=== PATIENT | female | born 1980 | race Caucasian/White ===

== ENCOUNTER 2017-03-05 12:45 | Emergency (ER) | payer BC ==
[2017-03-05 13:30] VITALS: BP 116/86
--- NOTE | 2017-03-05 14:54 | UC ---
Knee Pain HPI - HPI Summary HPI Summary: TRIPPED AND TWISTED LEFT KNEE 8 DAYS AGO (02/25/17). HAD IMMEDIATE PAIN AND IT HAS GOTTEN WORSE OVER THE PAST WEEK. MINIMAL SWELLING. WALKING WITH A LIMP. IBUPROFEN HELPS. - History of Current Complaint Chief Complaint: UCLowerExtremity Stated Complaint: KNEE INJURY Time Seen by Provider: 03/05/17 14:41 Hx Obtained From: Patient Hx Last Menstrual Period: 02/25/17 Onset/Duration: Gradual Onset, Lasting Days, Still Present Severity Initially: Moderate Severity Currently: Moderate Pain Intensity: 5 Pain Scale Used: 0-10 Numeric Character: Aching Alleviating Factor(s): Rest, Position, OTC Meds - IBUPROFEN Associated Signs And Symptoms: Positive: Swelling. Negative: Redness, Bruising , Fever, Numbness, Tingling Able to Bear Weight: Yes - Allergies/Home Medications Allergies/Adverse Reactions: Allergies Allergy/AdvReac Type Severity Reaction Status Date / Time Morphine AdvReac Severe Headache Verified 03/05/17 13:30 Vancomycin AdvReac Severe See Comment Verified 03/05/17 13:30 Baclofen AdvReac Intermediate Headache Verified 03/05/17 13:30 Home Medications: Home Medications Cholecalciferol TAB* [Vitamin D TAB*] 1,000 unit PO WEEKLY 03/05/17 [History Confirmed 03/05/17] Ibuprofen TAB* [Advil TAB*] 800 mg PO TID PRN 03/05/17 [History Confirmed ] QUEtiapine TAB* [Seroquel TAB*] 50 mg PO BEDTIME 03/05/17 [History Confirmed ] PMH/Surg Hx/FS Hx/Imm Hx - Additional Past Medical History Additional PMH: PCOS, FIBROMYALGIA Endocrine History Of: Denies: Diabetes Cardiovascular History Of: Denies: Hypertension, Pacemaker/ICD, Congestive Heart Failure Respiratory History Of: Denies: Asthma GI/ History Of: Reports: Ulcer - /p yamel en y, Gastrointestinal Bleed Denies: Renal Disease Neurological History Of: Reports: Migraine Psychological History Of: Reports: Anxiety, Depression - Surgical History Surgical History: Yes Surgery Procedure, Year, and Place: 3 HIP SURGERIES A CHILD. LUMBAR 4-5 DISCECTOMY 2009. LAP GASTRIC BYPASS [place] [facility] [place] 2010. LEFT TOTAL HIP REPLACEMENT AND SCREW REMOVAL 2011. LUMBAR DORSAL COLUMN STIMULATOR TRAIL LEAD PLACEMENT 05/2013. DORSAL COLUMN STIMULATOR PLACEMENT 08/2013. D AND C 2015 [place] - Family History Known Family History: Positive: None - Social History Alcohol Use: Occasionally Alcohol Amount: 3 X YEAR Substance Use Type: Marijuana Substance Use Comment - Amount & Last Used: occassionally for pain Smoking Status (MU): Light Every Day Tobacco Smoker Type: Cigarettes Amount Used/How Often: 5 CIG DAY Have You Smoked in the Last Year: Yes Household Exposure Type: Cigarettes - Immunization History Most Recent Influenza Vaccination: 2011 Most Recent Tetanus Shot: unknown Review of Systems Constitutional: Negative Skin: Negative Respiratory: Negative Cardiovascular: Negative Gastrointestinal: Negative Musculoskeletal: Arthralgia, Decreased ROM All Other Systems Reviewed And Are Negative: Yes Physical Exam Triage Information Reviewed: Yes Appearance: Well-Appearing, No Pain Distress, Well-Nourished Vital Signs: Initial Vital Signs Temp 98.7 F 03/05/17 13:26 Pulse 74 03/05/17 13:26 Resp 16 03/05/17 13:26 BP 116/86 03/05/17 13:26 Pulse Ox 98 03/05/17 13:26 Vital Signs Reviewed: Yes Eyes: Positive: Conjunctiva Clear ENT: Positive: Hearing grossly normal Neck: Positive: Supple Respiratory: Positive: No respiratory distress, No accessory muscle use Cardiovascular: Positive: Pulses Normal Abdomen Description: Positive: Soft Musculoskeletal: Positive: ROM Limited @ - LEFT KNEE, Edema @ - MILDLY EDEMATOUS LEFT KNEE, Other: - LEFT KNEE: LATERAL JOINT LINE TENDERNESS. NO TENDERNESS OVER ANY BONY PROMINENCES. MCL AND LCL INTACT TO STRESS TESTING. NEG LACHMANS. NEG DRAWERS SIGNS. POS MCMURRAYS LATERAL. NO TENDERNESS OVER PATELLAR LIGAMENT OR QUADRICEPS TENDON. MILDLY DECREASED ROM (FLEXION). Neurological: Positive: Alert Psychological: Positive: Age Appropriate Behavior Skin: Negative: rashes Diagnostics - Radiology LEFT KNEE XRAY Xray Interpretation: No Acute Changes Radiology Interpretation Completed By: Radiologist Knee Pain Course/Dx - Differential Dx/Diagnosis Provider Diagnoses: LEFT KNEE PAIN - SUSPECT INTERNAL INJURY Discharge - Discharge Plan Condition: Stable Disposition: HOME Patient Education Materials: Knee Pain (ED) Referrals: Carol Ingram RN [Primary Care Provider] - If Needed Jaylon Parham MD [Medical Doctor] - 1 Week Additional Instructions: WEAR THE KNEE IMMOBILIZER FOR THE NEXT 2-3 DAYS. THEN BE SURE TO GO THROUGH SLOW RANGE OF MOTION AND STRETCHING EXERCISES YOU ARE ABLE TO PREVENT STIFFENING UP AND MAKING THE DISCOMFORT WORSE. FOLLOW-UP WITH ORTHO. SUSPECTED INTERNAL KNEE INJURY: The examiner of your injured knee suspects an internal injury to the cartilage or internal ligaments. This must be further investigated by an pediatric sports medicine specialist. The knee should be protected, ice packed, and elevated while awaiting your follow-up exam by the orthopedist. If there is severe swelling, severe pain, or any new symptoms while awaiting your exam, you should call the orthopedist. (If he/she is unavailable, call us or return for re-examination.)
--- NOTE | 2017-03-05 15:22 | RAD ---
HISTORY: Lateral left knee pain, subacute trauma COMPARISONS: None VIEWS: 4, Frontal, lateral, axial, and oblique views of the left knee FINDINGS: BONE DENSITY: Normal. BONES: There is no displaced fracture. JOINTS: There is no arthropathy. There is no suprapatellar joint effusion or lipohemarthrosis. ALIGNMENT: There is no dislocation. SOFT TISSUES: Unremarkable. OTHER FINDINGS: None. IMPRESSION: NO ACUTE OSSEOUS INJURY. IF SYMPTOMS PERSIST, RECOMMEND REPEAT IMAGING.
== END 2017-03-05 15:44 | disposition home or self-care (01) ==
LOC: UCEAST 12:45
DX: M25.562 Pain in left knee (principal); G43.909 Migraine, unspecified, not intractable, without status migrainosus; F41.9 Anxiety disorder, unspecified; Z88.1 Allergy status to other antibiotic agents; Z88.5 Allergy status to narcotic agent; F32.9 Major depressive disorder, single episode, unspecified; F17.210 Nicotine dependence, cigarettes, uncomplicated
CPT/HCPCS: 99213; G0463

== ENCOUNTER 2018-04-05 13:01 | Emergency (ER) | payer BC ==
[2018-04-05 13:30] VITALS: BP 132/87
--- NOTE | 2018-04-05 14:30 | UC ---
Upper Extremity HPI - HPI Summary HPI Summary: Patient is a 37-year-old female presenting 6 days after falling to the right arm presenting with continuing right arm pain. Endorses ecchymosis with a small deformity. Radiation of pain to the wrist and hand as well as up to the elbow. Denies any pain to the elbow and denies any range of motion issues to the elbow or wrist. Denies any numbness or tingling. She denies any other injuries otherwise. - History of Current Complaint Chief Complaint: UCUpperExtremity Stated Complaint: LOWER ARM INJURY Time Seen by Provider: 04/05/18 14:04 Hx Obtained From: Patient Hx Last Menstrual Period: 02/25/17 ?: No Onset/Duration: Sudden Onset Severity Initially: Moderate Severity Currently: Moderate Pain Intensity: 4 Pain Scale Used: 0-10 Numeric Location Of Pain: Is Discrete @ - right forearm pain and ecchymosis Aggravating Factor(s): Lifting, Flexion, Extension Associated Signs And Symptoms: Positive: Swelling, Bruising, Numbness/Tingling Related History: Dominant Hand Right - Risk Factors Non-Orthopedic Risk Factor: Negative DVT Risk Factors: Negative Septic Arthritis Risk Factor: Negative Compartment Syndrome Risk Factors: Pain - Allergies/Home Medications Allergies/Adverse Reactions: Allergies Allergy/AdvReac Type Severity Reaction Status Date / Time baclofen Allergy Headache Verified 04/05/18 13:31 morphine Allergy Headache Verified 04/05/18 13:31 vancomycin Allergy See Comment Verified 04/05/18 13:31 MS Morphine [Morphine] AdvReac Severe Headache Verified 03/20/17 09:55 MS Vancomycin [Vancomycin] AdvReac Severe See Comment Verified 03/20/17 09:55 MS Baclofen [Baclofen] AdvReac Intermediate Headache Verified 03/20/17 09:55 Home Medications: Home Medications Acetaminophen TAB* [Tylenol TAB*] 1,000 mg PO Q4H PRN 04/05/18 [History Confirmed 04/05/18] Multivitamins/Minerals TAB* [Theragran/minerals TAB*] 1 tab PO DAILY 04/05/18 [ History Confirmed 04/05/18] Pregabalin CAP(*) [Lyrica CAP(*)] 150 mg PO BID 04/05/18 [History Confirmed ] PMH/Surg Hx/FS Hx/Imm Hx Previously Healthy: Yes - Surgical History Surgical History: Yes Surgery Procedure, Year, and Place: 3 HIP SURGERIES A CHILD. LUMBAR 4-5 DISCECTOMY 2009. LAP GASTRIC BYPASS [place] [facility] 2010. LEFT TOTAL HIP REPLACEMENT AND SCREW REMOVAL 2011. hysterectomy. LUMBAR DORSAL COLUMN STIMULATOR TRAIL LEAD PLACEMENT 05/2013. DORSAL COLUMN STIMULATOR PLACEMENT 2012. D AND C 05/2016 [place]. STIMULATOR REMOVED-WILL HAVE DX TO CLEAR - Family History Known Family History: Positive: None - Social History Occupation: Employed Full-time Lives: With Family Alcohol Use: Occasionally Alcohol Amount: 3 X YEAR Substance Use Type: Marijuana Substance Use Comment - Amount & Last Used: occassionally for pain Smoking Status (MU): Light Every Day Tobacco Smoker Type: Cigarettes Amount Used/How Often: 15 sig/day Have You Smoked in the Last Year: Yes Household Exposure Type: Cigarettes - Immunization History Most Recent Influenza Vaccination: 2011 Most Recent Tetanus Shot: unknown Review of Systems Constitutional: Negative Skin: Bruising Respiratory: Negative Cardiovascular: Negative Motor: Negative Neurovascular: Negative Musculoskeletal: Arthralgia Neurological: Negative Psychological: Negative Is Patient Immunocompromised?: No All Other Systems Reviewed And Are Negative: Yes Physical Exam Triage Information Reviewed: Yes Appearance: Well-Appearing, No Pain Distress, Well-Nourished Vital Signs: Initial Vital Signs Temp 98.6 F 04/05/18 13:24 Pulse 78 04/05/18 13:24 Resp 16 04/05/18 13:24 BP 132/87 04/05/18 13:24 Pulse Ox 100 04/05/18 13:24 Vital Signs Reviewed: Yes Eye Exam: Normal Neck exam: Normal Neck: Positive: Supple, No Lymphadenopathy Respiratory Exam: Normal Respiratory: Positive: Chest non-tender, Lungs clear Cardiovascular Exam: Normal Cardiovascular: Positive: RRR Musculoskeletal Exam: Other - bruising and swelling with small deformity to the right forearm Neurological Exam: Normal Neurological: Positive: Alert Psychological Exam: Normal Psychological: Positive: Normal Response To Family Skin Exam: Normal Upper Extremity Course/Dx - Course Course Of Treatment: On physical examination, patient is evaluated for right forearm pain, ecchymosis, swelling and small deformity. X-ray obtained which shows no fracture or acute findings. The area of deformity seems to be a tension hematoma. I have encouraged heat to the area and I have Jose wrapped the area for comfort. - Differential Dx/Diagnosis Provider Diagnoses: Hematoma Discharge - Sign-Out/Discharge Documenting (check all that apply): Discharge/Admit/Transfer - Discharge Plan Condition: Stable Disposition: HOME Patient Education Materials: Hematoma (ED) Referrals: Carol Ingram RN [Primary Care Provider] - Additional Instructions: Tylenol 650mg three times daily Moist heat to the area Keep the area compressed - Billing Disposition and Condition Condition: STABLE Disposition: Home
--- NOTE | 2018-04-05 14:50 | RAD ---
INDICATION: Right forearm injury COMPARISON: None TECHNIQUE: AP and lateral views were obtained. FINDINGS: There is no acute fracture. There is soft tissue swelling of the dorsal forearm and wrist. IMPRESSION: NO ACUTE FRACTURE.
== END 2018-04-05 15:05 | disposition home or self-care (01) ==
LOC: UCEAST 13:01
DX: S50.11XA Contusion of right forearm, initial encounter (principal); W19.XXXA Unspecified fall, initial encounter; Y93.9 Activity, unspecified; Y99.9 Unspecified external cause status; F17.210 Nicotine dependence, cigarettes, uncomplicated
CPT/HCPCS: 99211; G0463

== ENCOUNTER 2018-05-08 11:19 | Emergency (ER) | payer BC ==
[2018-05-08 11:26] VITALS: BP 123/77
--- NOTE | 2018-05-08 11:53 | UC ---
Hand/Wrist HPI - HPI Summary HPI Summary: 37 y/o female present to the urgent care c/o fell last week onto her right wrist on the lateral side, isn't able to get relief from the pain. - History Of Current Complaint Chief Complaint: UCUpperExtremity Stated Complaint: R ARM INJURY Time Seen by Provider: 05/08/18 11:46 Hx Obtained From: Patient Hx Last Menstrual Period: 02/25/17 ?: No - Hx of Hystertomy Onset/Duration: Sudden Onset, Lasting Weeks - 1.5 week Severity Initially: Moderate Severity Currently: Moderate Pain Intensity: 6 Pain Scale Used: 0-10 Numeric Character Of Pain: Sharp Aggravating Factor(s): Movement, Lifting, Pulling Alleviating Factor(s): Rest, Ice, OTC Meds Associated Signs And Symptoms: Positive: Swelling. Negative: Redness, Bruising , Fever, Weakness, Numbness/Tingling Related History: Dominant Hand Right - Allergies/Home Medications Allergies/Adverse Reactions: Allergies Allergy/AdvReac Type Severity Reaction Status Date / Time baclofen Allergy Headache Verified 05/08/18 11:26 morphine Allergy Headache Verified 05/08/18 11:26 vancomycin Allergy See Comment Verified 05/08/18 11:26 Home Medications: Home Medications Iron 1 tab PO DAILY 05/08/18 [History Confirmed 05/08/18] PMH/Surg Hx/FS Hx/Imm Hx Previously Healthy: Yes Other Endocrine History: fibromyalgia, Trigeminal neuralgia Other Neurological History: Degenerative disc disease, herniated Disc Psychological History: Anxiety, Depression - Surgical History Surgical History: Yes Surgery Procedure, Year, and Place: 3 HIP SURGERIES A CHILD. LUMBAR 4-5 DISCECTOMY 2009. LAP GASTRIC BYPASS [place] [facility] 2010. LEFT TOTAL HIP REPLACEMENT AND SCREW REMOVAL 2011. hysterectomy. LUMBAR DORSAL COLUMN STIMULATOR TRAIL LEAD PLACEMENT 05/2013. DORSAL COLUMN STIMULATOR PLACEMENT 2012. D AND C 05/2016 [place]. STIMULATOR REMOVED-WILL HAVE DX TO CLEAR - Family History Known Family History: Positive: Hypertension, Diabetes - Social History Occupation: Disabled Lives: With Family Alcohol Use: Daily Alcohol Amount: 3 X YEAR Substance Use Type: Marijuana Substance Use Comment - Amount & Last Used: occassionally for pain Smoking Status (MU): Light Every Day Tobacco Smoker Type: Cigarettes Amount Used/How Often: 15 sig/day Have You Smoked in the Last Year: Yes Household Exposure Type: Cigarettes - Immunization History Most Recent Influenza Vaccination: 2011 Most Recent Tetanus Shot: unknown Review of Systems Constitutional: Negative Skin: Other - RT wrsit swelling s/p fall Eyes: Negative ENT: Negative Respiratory: Negative Cardiovascular: Negative Gastrointestinal: Negative Genitourinary: Negative Motor: Negative Neurovascular: Negative Musculoskeletal: Decreased ROM - Rt wrist, Other: - Rt wrist pain s/p fall Neurological: Negative Psychological: Negative Is Patient Immunocompromised?: No All Other Systems Reviewed And Are Negative: Yes Physical Exam - Summary Physical Exam Summary: Vital Signs Reviewed: Yes General: Well-Appearing, No Pain Distress, Well-Nourished - female w/o any apparent distress Eyes: Positive: Conjunctiva Clear - PERRLA, EOMI ENT: Positive: Normal ENT inspection, Hearing grossly normal, Pharynx normal, TMs normal, Uvula midline Neck: Positive: Supple, Nontender, No Lymphadenopathy Respiratory: Positive: Chest non-tender, Lungs clear, Normal breath sounds, No respiratory distress Cardiovascular: Positive: RRR, No Murmur, Pulses Normal, Brisk Capillary Refill Abdomen Description: Positive: Nontender, No Organomegaly, Soft. Negative: CVA Tenderness (R), CVA Tenderness (L) Bowel Sounds: Positive: Present Musculoskeletal: Positive: Strength Intact, Other: Neurological Exam: Normal Musculoskeletal: Positive: Wrist: the R wrist is without obvious asymmetry or deformity when compared to the L wrist. No surface trauma, open wounds, swelling , or obvious deformity. No overlying erythema or warmth. No bony crepitus. Point tenderness over the thenar eminence and ventral side of wrist. No scaphoid fullness or tenderness to direct palpation or axial load. Decreased ROM due to pain. Motor/sensory function of ulnar, radial, median nerves intact. Ulnar and radial pulses intact. Psychological Exam: Normal Skin Exam: Normal Triage Information Reviewed: Yes Vital Signs: Initial Vital Signs Temp 99.3 F 05/08/18 11:22 Pulse 82 05/08/18 11:22 Resp 18 05/08/18 11:22 BP 123/77 05/08/18 11:22 Pulse Ox 99 05/08/18 11:22 Hand/Wrist Course/Dx - Differential Dx/Diagnosis Differential Diagnosis/HQI/PQRI: Contusion, Fracture, Sprain, Strain, Tendonitis Provider Diagnoses: 1- RT wrist pain and swelling s/p fall. 2- RT wrist sprain Discharge - Discharge Plan Condition: Stable Disposition: HOME Prescriptions: HYDROcodone/ACETAMIN 5-325 MG* [[place] 5-325 TAB*] 1 tab PO Q6H PRN #12 tab MDD 1g/4hrs-4g/day PRN Reason: Pain Patient Education Materials: Wrist Sprain (ED) Referrals: Hernesto MEADEP,Carol [Primary Care Provider] - 1 Week Garth Ramirez MD [Medical Doctor] - 1 Week Additional Instructions: 1-Please take medications as directed to alleviate pain and swelling. 2-Please apply ice, keep your wrist immobilized with the splint.Avoid heavy lifting. 3- Please f/u with Orthopedic Dr Ramirez or your PCP in 1 week is not improvement of symptoms for further evaluation and treatment. - Billing Disposition and Condition Condition: STABLE Disposition: Home
[2018-05-08] MEDS ORDERED: Ketorolac INJ* 30 MG/ML 1 ML VIAL IM ONE (12:04)
--- NOTE | 2018-05-08 12:44 | RAD ---
INDICATION: Right wrist injury. TECHNIQUE: 3 views of the right wrist were obtained. FINDINGS: There is diffuse soft tissue swelling. The bones are in normal alignment. No fracture is seen. Joint spaces appear maintained. IMPRESSION: SOFT TISSUE SWELLING, NO FRACTURE IS SEEN. IF THE PATIENT'S SYMPTOMS PERSIST RECOMMEND FOLLOW-UP IMAGING.
== END 2018-05-08 13:03 | disposition home or self-care (01) ==
LOC: UCEAST 11:19
DX: S63.501A Unspecified sprain of right wrist, initial encounter (principal); F17.210 Nicotine dependence, cigarettes, uncomplicated; Z88.1 Allergy status to other antibiotic agents; Z88.5 Allergy status to narcotic agent; Z88.8 Allergy status to other drugs, medicaments and biological substances; M79.7 Fibromyalgia; W19.XXXA Unspecified fall, initial encounter; Y92.9 Unspecified place or not applicable
CPT/HCPCS: 99213; G0463; J1885

== ENCOUNTER 2019-02-27 13:14 | Emergency (ER) | payer MEDICAID, MEDICARE ==
[2019-02-27 13:58] LABS: ABS Basophils 0.1 10^3/ul (0-0.2); ABS Eosinophils 0.2 10^3/ul (0-0.6); ABS Lymphocytes 1.8 10^3/ul (1.0-4.8); ABS Neutrophils 9.4 10^3/ul (1.5-7.7); Eosinophil % 1.8 %; Hematocrit 41 % (35-47); Hemoglobin 13.8 g/dL (12.0-16.0); Lymphocyte % 14.4 %; Mean Corpuscular HGB Conc 34 g/dL (31-36); Mean Corpuscular Hemoglobin 32 pg (27-31); Mean Corpuscular Volume 95 fL (80-97); Mean Platelet Volume 8.5 fL (7.4-10.4); Nucleated Red Blood Cells % 0.1; Platelet Count 265 10^3/uL (150-450); Red Cell Distribution Width 13 % (10.5-15); White Blood Count 12.5 10^3/uL (3.5-10.8)
[2019-02-27 14:05] LABS: INR 0.99 (0.82-1.09)
[2019-02-27 14:16] LABS: ALT 20 U/L (7-52); AST 18 U/L (13-39); Albumin 4.6 g/dL (3.2-5.2); Albumin/Globulin Ratio 1.6 (1-3); Alkaline Phosphatase 66 U/L (34-104); Anion Gap 6 mmol/L (2-11); BUN/Creatinine Ratio 12.5 (8-20); Blood Urea Nitrogen 8 mg/dL (6-24); CO2 Carbon Dioxide 26 mmol/L (22-32); Calcium 9.4 mg/dL (8.6-10.3); Chloride 106 mmol/L (101-111); Creatine Kinase 37 U/L (10-223); EGFR African American 126.3 (>60); EGFR Non-African American 104.4 (>60); Globulin 2.8 g/dL (2-4); Glucose 96 mg/dL (70-100); Potassium 3.7 mmol/L (3.5-5.0); Sodium 138 mmol/L (135-145); Total Protein 7.4 g/dL (6.4-8.9)
--- NOTE | 2019-02-27 14:22 | ED ---
Seizure - HPI Summary HPI Summary: 38-year-old female presents with fall today. States that she was sitting in a stool and she passed out and had vibrations per her friend. She states she's been having increased twitching due to her lithium. States that the lithium causes her twitches. She's never had this before. No family history of seizures. She denies any pain. No chest pain or shortness of breath. She denies any dizziness. No headache. She does not believe she hit her head. admits to nausea but no vomiting. No recent illness. No fevers. Her tremor has been increasing in the past couple weeks. She states feels off. She denies any fevers. - History Of Current Complaint Chief Complaint: EDSeizure Time Seen by Provider: 02/27/19 13:28 - Allergies/Home Medications Allergies/Adverse Reactions: Allergies Allergy/AdvReac Type Severity Reaction Status Date / Time baclofen Allergy Headache Verified 05/08/18 11:26 morphine Allergy Headache Verified 05/08/18 11:26 vancomycin Allergy See Comment Verified 05/08/18 11:26 Home Medications: Home Medications Dushore Carbonate [Dushore Carbonate 300 mg cap] 300 mg PO TID 02/27/19 [ History Confirmed 02/27/19] PMH/Surg Hx/FS Hx/Imm Hx Endocrine/Hematology History: Reports: Other Endocrine/Hematological Disorders - obesity Denies: Hx Diabetes, Hx Systemic Lupus Erythematosus, Hx Sickle Cell Disease Cardiovascular History: Denies: Hx Congestive Heart Failure, Hx Hypertension, Hx Pacemaker/ICD Respiratory History: Reports: Hx Sleep Apnea - USES CPAP Denies: Hx Asthma, Other Respiratory Problems/Disorders GI History: Reports: Hx Gastroesophageal Reflux Disease, Hx Gastrointestinal Bleed, Hx Ulcer - /p yamel en y, Other GI Disorders - GASTRIC BYPASS History: Denies: Hx Dialysis, Hx Renal Disease, Other Problems/Disorders Musculoskeletal History: Reports: Hx Arthritis - GENERALIZED OSTEO, Hx Back Problems, Hx Fibromyalgia, Hx Orthopedic Injury, Other Musculoskeletal History - back surgeries and hip replacement Denies: Hx Rheumatoid Arthritis Sensory History: Reports: Hx Contacts or Glasses Denies: Hx Hearing Aid Opthamlomology History: Reports: Hx Contacts or Glasses Neurological History: Reports: Hx Migraine, Hx Spinal Cord Injury - multiple surgeries Comment Only: Other Neuro Impairments/Disorders - migrane Psychiatric History: Reports: Hx Anxiety, Hx Depression, Hx Panic Disorder - CHRONIC ANXIETY - Cancer History Cancer Type, Location and Year: uterine polyp 2010 Hx Chemotherapy: No Hx Radiation Therapy: No Hx Palliative Cancer Treatment: No - Surgical History Surgery Procedure, Year, and Place: 3 HIP SURGERIES A CHILD. LUMBAR 4-5 DISCECTOMY 2009. LAP GASTRIC BYPASS YAMEL EN Y 2010. LEFT TOTAL HIP REPLACEMENT AND SCREW REMOVAL 2011. hysterectomy. LUMBAR DORSAL COLUMN STIMULATOR TRAIL LEAD PLACEMENT 05/2013. DORSAL COLUMN STIMULATOR PLACEMENT 2012. D AND C 05/2016 [facility]. STIMULATOR REMOVED-WILL HAVE DX TO CLEAR Hx Anesthesia Reactions: No Infectious Disease History: No Infectious Disease History: Denies: Hx Clostridium Difficile, Hx Hepatitis, Hx Human Immunodeficiency Virus (HIV), Hx of Known/Suspected MRSA, Traveled Outside the [place] in Last 30 Days - Family History Known Family History: Positive: None, Hypertension, Diabetes - Social History Alcohol Use: Daily Alcohol Amount: 3 X YEAR Substance Use Type: Reports: Marijuana Substance Use Comment - Amount & Last Used: occassionally for pain Smoking Status (MU): Light Every Day Tobacco Smoker Type: Cigarettes Amount Used/How Often: 15 sig/day Have You Smoked in the Last Year: Yes Review of Systems Negative: Fever Negative: Chest Pain Negative: Shortness Of Breath Neurological: Other - vibration All Other Systems Reviewed And Are Negative: Yes Physical Exam Triage Information Reviewed: Yes Vital Signs On Initial Exam: Initial Vitals Temp Pulse Resp BP Pulse Ox 97.8 F 85 16 176/107 100 02/27/19 13:18 02/27/19 13:18 02/27/19 13:18 02/27/19 13:18 02/27/19 13:18 Vital Signs Reviewed: Yes Appearance: Positive: Well-Appearing Skin: Positive: Warm, Dry Head/Face: Positive: Normal Head/Face Inspection Eyes: Positive: Normal, Conjunctiva Clear ENT: Positive: Pharynx normal Respiratory/Lung Sounds: Positive: Clear to Auscultation, Breath Sounds Present Cardiovascular: Positive: Normal, RRR Abdomen Description: Positive: Nontender, Soft Bowel Sounds: Positive: Present Musculoskeletal: Positive: Normal Neurological: Positive: Sensory/Motor Intact, Alert, Oriented to Person Place, Time, CN Intact II-III Psychiatric: Positive: Normal - [place] Coma Scale Best Eye Response: 4 - Spontaneous Best Motor Response: 6 - Obeys Commands Best Verbal Response: 5 - Oriented Coma Scale Total: 15 Diagnostics - Vital Signs Vital Signs Temp Pulse Resp BP Pulse Ox 02/27/19 13:18 97.8 F 85 16 176/107 100 - Laboratory Lab Results: Lab Results 02/27/19 02/27/19 02/27/19 Range/Units 13:46 13:46 13:46 WBC 12.5 H (3.5-10.8) 10^3/uL RBC 4.30 (3.70-4.87) 10^6 /uL Hgb 13.8 (12.0-16.0) g/dL Hct 41 (35-47) % MCV 95 (80-97) fL MCH 32 H (27-31) pg MCHC 34 (31-36) g/dL RDW 13 (10.5-15) % Plt Count 265 (150-450) 10^3/uL MPV 8.5 (7.4-10.4) fL Neut % (Auto) 75.2 % Lymph % (Auto) 14.4 % Petroleum % (Auto) 7.8 % Eos % (Auto) 1.8 % Baso % (Auto) 0.8 % Absolute Neuts (auto) 9.4 H (1.5-7.7) 10^3/ul Absolute Lymphs (auto) 1.8 (1.0-4.8) 10^3/ul Absolute Monos (auto) 1.0 H (0-0.8) 10^3/ul Absolute Eos (auto) 0.2 (0-0.6) 10^3/ul Absolute Basos (auto) 0.1 (0-0.2) 10^3/ul Absolute Nucleated RBC 0.0 10^3/ul Nucleated RBC % 0.1 INR (Anticoag Therapy) 0.99 (0.82-1.09) Sodium 138 (135-145) mmol/L Potassium 3.7 (3.5-5.0) mmol/L Chloride 106 (101-111) mmol/L Carbon Dioxide 26 (22-32) mmol/L Anion Gap 6 (2-11) mmol/L BUN 8 (6-24) mg/dL Creatinine 0.64 (0.51-0.95) mg/dL Est GFR ( Amer) 126.3 (>60) Est GFR (Non-Af Amer) 104.4 (>60) BUN/Creatinine Ratio 12.5 (8-20) Glucose 96 (70-100) mg/dL Lactic Acid (0.5-2.0) mmol/L Calcium 9.4 (8.6-10.3) mg/dL Magnesium 2.0 (1.9-2.7) mg/dL Total Bilirubin 0.40 (0.2-1.0) mg/dL AST 18 (13-39) U/L ALT 20 (7-52) U/L Alkaline Phosphatase 66 (34-104) U/L Total Creatine Kinase 37 (10-223) U/L Total Protein 7.4 (6.4-8.9) g/dL Albumin 4.6 (3.2-5.2) g/dL Globulin 2.8 (2-4) g/dL Albumin/Globulin Ratio 1.6 (1-3) D[place]ore Pending Serum Alcohol Pending 02/27/19 Range/Units 13:46 WBC (3.5-10.8) 10^3/uL RBC (3.70-4.87) 10^6 /uL Hgb (12.0-16.0) g/dL Hct (35-47) % MCV (80-97) fL MCH (27-31) pg MCHC (31-36) g/dL RDW (10.5-15) % Plt Count (150-450) 10^3/uL MPV (7.4-10.4) fL Neut % (Auto) % Lymph % (Auto) % Petroleum % (Auto) % Eos % (Auto) % Baso % (Auto) % Absolute Neuts (auto) (1.5-7.7) 10^3/ul Absolute Lymphs (auto) (1.0-4.8) 10^3/ul Absolute Monos (auto) (0-0.8) 10^3/ul Absolute Eos (auto) (0-0.6) 10^3/ul Absolute Basos (auto) (0-0.2) 10^3/ul Absolute Nucleated RBC 10^3/ul Nucleated RBC % INR (Anticoag Therapy) (0.82-1.09) Sodium (135-145) mmol/L Potassium (3.5-5.0) mmol/L Chloride (101-111) mmol/L Carbon Dioxide (22-32) mmol/L Anion Gap (2-11) mmol/L BUN (6-24) mg/dL Creatinine (0.51-0.95) mg/dL Est GFR ( Amer) (>60) Est GFR (Non-Af Amer) (>60) BUN/Creatinine Ratio (8-20) Glucose (70-100) mg/dL Lactic Acid 1.2 (0.5-2.0) mmol/L Calcium (8.6-10.3) mg/dL Magnesium (1.9-2.7) mg/dL Total Bilirubin (0.2-1.0) mg/dL AST (13-39) U/L ALT (7-52) U/L Alkaline Phosphatase (34-104) U/L Total Creatine Kinase (10-223) U/L Total Protein (6.4-8.9) g/dL Albumin (3.2-5.2) g/dL Globulin (2-4) g/dL Albumin/Globulin Ratio (1-3) D[place]ore Serum Alcohol Result Diagrams: 02/27/19 13:46 02/27/19 13:46 Lab Statement: Any lab studies that have been ordered have been reviewed, and results considered in the medical decision making process. - CT brain CT Interpretation Completed By: ED Physician Summary of CT Findings: no acute findings - EKG No standard instances Cardiac Rate: NL EKG Rhythm: Sinus Rhythm Summary of EKG Findings: sinus rhythm Re-Evaluation - Re-Evaluation First Eval Comment: feels nausous Second Eval Re-Evaluation Time: 16:06 Comment: feeling better, no seizure activity in ED Course/Dx - Course Course Of Treatment: 38-year-old female presents with fall today. States that she was sitting in a stool and she passed out and had vibrations per her friend. She states she's been having increased twitching due to her lithium. States that the lithium causes her twitches. She's never had this before. No family history of seizures. She denies any pain. No chest pain or shortness of breath. She denies any dizziness. No headache. She does not believe she hit her head. admits to nausea but no vomiting. No recent illness. No fevers. Her tremor has been increasing in the past couple weeks. She states feels off. She denies any fevers. On exam has a normal neuro exam. Has a resting tremor present. EKG shows sinus rhythm. labwork without significant abnormality. CT brain normal. Gave Zofran and feeling better. Discharged to follow-up with neurology outpatient. likely was a syncopal event. But can follow-up with neurology about tremor. Patient understands agrees with plan. - Diagnoses Differential Diagnosis/HQI/PQRI: Positive: Intracranial Bleed, Metabolic Disorder, New Onset Seizure Provider Diagnoses: Syncope Discharge - Sign-Out/Discharge Documenting (check all that apply): Patient Departure Patient Received Moderate/Deep Sedation with Procedure: No - Discharge Plan Condition: Good Disposition: HOME Patient Education Materials: Syncope (ED) Referrals: Carol Ingram RN [Primary Care Provider] - Imtiaz Ovalle MD [Medical Doctor] - Additional Instructions: follow up with neurology about tremor and potential seizure like activity Return to ED if develop any new or worsening symptoms - Billing Disposition and Condition Condition: GOOD Disposition: Home
[2019-02-27 14:37] LABS: Alcohol < 10 mg/dL (<10); Lithium 0.34 mmol/L (0.6-1.2)
[2019-02-27] MEDS ORDERED: Ondansetron INJ* 2 MG/ML VIAL IV ONE (14:46)
[2019-02-27 15:27] LABS: Urine Appearance Cloudy; Urine Bilirubin Negative (Negative); Urine Blood Negative (Negative); Urine Color Yellow; Urine Glucose Negative (Negative); Urine Ketones Negative (Negative); Urine Nitrite Negative (Negative); Urine Protein Negative (Negative); Urine Specific Gravity 1.003 (1.010-1.030); Urine Urobilinogen Negative (Negative)
[2019-02-27 16:03] LABS: Urine Benzodiazepine Screen None Detected (None Detect); Urine Opiates Screen None Detected (None Detect)
[2019-02-27 16:16] VITALS: BP 131/74
== END 2019-02-27 16:19 | disposition home or self-care (01) ==
LOC: ED 13:14
DX: R55 Syncope and collapse (principal); F41.8 Other specified anxiety disorders; F32.9 Major depressive disorder, single episode, unspecified; F17.210 Nicotine dependence, cigarettes, uncomplicated; Z79.899 Other long term (current) drug therapy
CPT/HCPCS: 36415; 70450; 80053; 80178; 80307; 80320; 81003; 82550; 83605; 83735; 85025; 85610; 93005; 96374; 99282; G0480; J2405